=== PATIENT | female | born 1960 | race African-American/Black ===

== ENCOUNTER 2017-05-22 08:06 | Emergency (ER) | payer OTHER ==
[~2017-05-22] VITALS: Ht 167.6 cm; Wt 99.0 kg
[~2017-05-22 08:06] MED LIST: ACET-2178 PO
[2017-05-22] MEDS ORDERED: METOCLOPRAMIDE HCL 10MG TABLET PO ONE (08:30)
[2017-05-22] MEDS ORDERED: ACETAMINOPHEN 325MG TABLET PO ONE (08:30)
[2017-05-22 10:29] VITALS: BP 161/106
== END 2017-05-22 11:20 | disposition home or self-care (01) ==
LOC: ER 08:16
DX: S02.2XXA Fracture of nasal bones, initial encounter for closed fracture (principal); R04.0 Epistaxis; I10 Essential (primary) hypertension; Z88.0 Allergy status to penicillin; Z86.73 Personal history of transient ischemic attack (TIA), and cerebral infarction without residual deficits; X58.XXXA Exposure to other specified factors, initial encounter; Y93.89 Activity, other specified; Y92.89 Other specified places as the place of occurrence of the external cause; Y99.8 Other external cause status
CPT/HCPCS: 70486; 99284; Z7610; J8597

== ENCOUNTER 2019-08-16 11:41 | Inpatient (IN) | payer MEDICAID, OTHER ==
[~2019-08-16] VITALS: Ht 167.6 cm; Wt 79.8 kg
[~2019-08-16 11:41] MED LIST changes: -ACET-2178 PO; +TOPUD PO
[2019-08-16 14:05] LABS: BASOPHILS % 0.3 % (0.0-2.0); EOSINOPHILS % 0.6 % (0.0-5.0); HEMATOCRIT. 34.4 % (36.0-48.0); HEMOGLOBIN. 11.5 g/dL (12.0-16.0); MEAN CORPUSCULAR HEMOGLOBIN 31.1 pg (28.0-32.0); MEAN CORPUSCULAR VOLUME 92.8 fL (81.0-99.0); MEAN PLATELET VOLUME 6.8 fl (7.4-10.4); MONOCYTES % 11.7 % (2.0-8.0); NEUTROPHILS % 72.4 % (40.0-76.0); PLATELET 226 x1000/uL (130-400); RED BLOOD CELL COUNT 3.71 mill/uL (4.2-5.4); RED CELL DISTRIBUTION WIDTH 15.8 % (11.6-14.6)
[2019-08-16 14:12] LABS: CHLORIDE 105 mEq/L (98-107)
[2019-08-16 14:13] LABS: INR 1.1; PARTIAL THROMBOPLASTIN TIME 35.5 sec (23.4-31.0); PROTHROMBIN TIME 11.1 sec (9.6-11.0)
[2019-08-16 14:18] LABS: ETHANOL BLOOD < 10 mg/dL
[2019-08-16] MEDS ORDERED: HYDROMORPHONE HCL/PF 2MG/ML CPJ IV PRN (15:15)
[2019-08-16] MEDS ORDERED: ONDANSETRON HCL 4MG/2ML INJ IV PRN (15:15)
[2019-08-16] MEDS ORDERED: DOCUSATE SODIUM 100MG CAPSULE PO PRN (15:15)
[2019-08-16] MEDS ORDERED: GUAIFENESIN 200MG/10ML SUGAR FREE UDC PO PRN (15:15)
[2019-08-16] MEDS ORDERED: MAGNESIUM/ALUMINUM HYDROXIDE/SIMETHICONE 30ML UDC PO PRN (15:15)
[2019-08-16] MEDS ORDERED: DIPHENHYDRAMINE 50MG/ML VIAL IV PRN (15:15)
[2019-08-16] MEDS ORDERED: CLONIDINE 0.1MG TABLET PO PRN (15:15)
[2019-08-16] MEDS ORDERED: HYDROCODONE/ACETAMINOPHEN 5/325MG TABLET PO PRN (15:15)
[2019-08-16] MEDS ORDERED: ENOXAPARIN 40MG/0.4ML SYR SUBCUT SCH (15:15)
[2019-08-16] MEDS ORDERED: LORAZEPAM 2MG/ML CPJ IV PRN (15:15)
[2019-08-16] MEDS ORDERED: NA PHOS,M-B/NA PHOS,DI-BA ENEMA 118ML PR PRN (15:15)
[2019-08-16] MEDS ORDERED: IPRATROPIUM/ALBUTEROL 0.5-3(2.5)MG/3ML NEB NEB PRN (15:15)
[2019-08-16] MEDS: ACETAMINOPHEN 325MG TABLET PO PRN (16:29)
[2019-08-16 16:43] LABS: *AMPHETAMINES SCREEN URINE NEGATIVE (NEGATIVE); *BARBITURATES SCREEN URINE NEGATIVE (NEGATIVE); *BENZODIAZEPINES SCREEN URINE NEGATIVE (NEGATIVE); *COCAINE SCREEN URINE NEGATIVE (NEGATIVE); CANNABINOID URINE SCREEN NEGATIVE (NEGATIVE); METHADONE URINE SCREEN NEGATIVE (NEGATIVE); OPIATES URINE SCREEN NEGATIVE (NEGATIVE); PHENCYCLIDINE URINE SCREEN NEGATIVE (NEGATIVE)
[2019-08-16 16:44] LABS: CLARITY URINE CLEAR (CLEAR); COLOR URINE YELLOW (YELLOW); KETONES URINE NEGATIVE (NEGATIVE); LEUKOCYTE ESTERASE URINE NEGATIVE (NEGATIVE); NITRITE URINE NEGATIVE (NEGATIVE); OCCULT BLOOD URINE NEGATIVE (NEGATIVE); PROTEIN URINE 1+ (NEGATIVE); UROBILINOGEN URINE 0.2 E.U./dL (0.2-1.0)
[2019-08-16] MEDS: SODIUM CHLORIDE 0.45% 1,000 ML IV SCH (18:35)
[2019-08-16] MEDS ORDERED: ENOXAPARIN 30MG/0.3ML SYR SUBCUT SCH (18:45)
[2019-08-17 05:11] LABS: BASOPHILS % 0.3 % (0.0-2.0); EOSINOPHILS % 0.8 % (0.0-5.0); HEMATOCRIT. 34.1 % (36.0-48.0); HEMOGLOBIN. 11.4 g/dL (12.0-16.0); LYMPHOCYTES % 43.3 % (20.0-50.0); MEAN CORPUSCULAR HEMOGLOBIN 31.1 pg (28.0-32.0); MEAN PLATELET VOLUME 7.1 fl (7.4-10.4); MONOCYTES % 14.4 % (2.0-8.0); NEUTROPHILS % 41.2 % (40.0-76.0); PLATELET 208 x1000/uL (130-400); RED BLOOD CELL COUNT 3.66 mill/uL (4.2-5.4); RED CELL DISTRIBUTION WIDTH 15.8 % (11.6-14.6)
[2019-08-17 05:28] LABS: CHLORIDE 107 mEq/L (98-107)
[2019-08-17 05:41] LABS: T4 FREE 0.98 ng/dL (0.76-1.46)
[2019-08-17 08:35] LABS: CREATINE KINASE 92 IU/L (26-192)
[2019-08-17 08:40] VITALS: BP 148/91
[2019-08-17 09:00] VITALS: BP 136/80
[2019-08-17 10:00] VITALS: BP 148/91
[2019-08-17] MEDS: ACETAMINOPHEN 325MG TABLET PO PRN (10:00)
[2019-08-17] MEDS: ASPIRIN 81MG EC TABLET PO SCH (10:00)
[2019-08-17] MEDS: ENOXAPARIN 30MG/0.3ML SYR SUBCUT SCH (10:01)
[2019-08-17] MEDS ORDERED: POTA8CAP20 MT (13:07)
[2019-08-17] MEDS ORDERED: LOSA1TAB37 MT (13:07)
[2019-08-17] MEDS ORDERED: AMLO10TA80 PO (13:07)
[2019-08-17] MEDS ORDERED: FERR325T6 MT (13:07)
[2019-08-17] MEDS ORDERED: ATOR20TA65 MT (13:07)
[2019-08-17] MEDS ORDERED: LORA10TA7 MT (13:07)
[2019-08-17 13:18] LABS: T4 FREE 1.04 ng/dL (0.76-1.46)
[2019-08-17] MEDS: SODIUM CHLORIDE 0.45% 1,000 ML IV SCH (13:52)
[2019-08-17 16:00] VITALS: BP 117/75
[2019-08-17 17:24] LABS: CREATINE KINASE MB FRACTION < 1.0 ng/mL (0.5-3.6)
[2019-08-17 20:00] VITALS: BP 141/79
[2019-08-18] VITALS: BP 120/75
[2019-08-18 04:00] VITALS: BP_SYST 134; BP_SYST 177; BP_DIAS 102; BP_DIAS 74
[2019-08-18] MEDS: SODIUM CHLORIDE 0.45% 1,000 ML IV SCH (06:05)
[2019-08-18 08:00] VITALS: BP_SYST 136; BP_SYST 165; BP_SYST 183; BP_DIAS 119; BP_DIAS 130; BP_DIAS 81
[2019-08-18 09:11] LABS: BASOPHILS % 0.3 % (0.0-2.0); EOSINOPHILS % 0.5 % (0.0-5.0); HEMATOCRIT. 33.6 % (36.0-48.0); HEMOGLOBIN. 11.2 g/dL (12.0-16.0); LYMPHOCYTES % 31.4 % (20.0-50.0); MEAN CORPUSCULAR HEMOGLOBIN 30.8 pg (28.0-32.0); MEAN CORPUSCULAR VOLUME 92.6 fL (81.0-99.0); MEAN PLATELET VOLUME 7.2 fl (7.4-10.4); MONOCYTES % 8.8 % (2.0-8.0); PLATELET 181 x1000/uL (130-400); RED BLOOD CELL COUNT 3.63 mill/uL (4.2-5.4); RED CELL DISTRIBUTION WIDTH 15.8 % (11.6-14.6)
[2019-08-18 09:27] LABS: CHLORIDE 107 mEq/L (98-107)
[2019-08-18 09:29] VITALS: BP 136/81
[2019-08-18 09:37] LABS: CREATINE KINASE MB FRACTION < 1.0 ng/mL (0.5-3.6)
[2019-08-18] MEDS ORDERED: POTASSIUM CHLORIDE 20MEQ TABLET SR PO ONE (10:00)
[2019-08-18] MEDS: ASPIRIN 81MG EC TABLET PO SCH (10:16)
[2019-08-18] MEDS: ENOXAPARIN 30MG/0.3ML SYR SUBCUT SCH (10:17)
== END 2019-08-18 11:35 | disposition home or self-care (01) | DRG 48 ==
LOC: ER 11:51 → 5WST 13:58 → EDBEDREQ 14:05 → EDBEDREQTM 14:05 → ENRESERV 08-17 07:22
PROVIDERS: ADMIT Internal Medicine; ATTEND Internal Medicine
DX: G90.8 Other disorders of autonomic nervous system (principal); G93.41 Metabolic encephalopathy; N17.9 Acute kidney failure, unspecified; E78.5 Hyperlipidemia, unspecified; E86.0 Dehydration; I12.9 Hypertensive chronic kidney disease with stage 1 through stage 4 chronic kidney disease, or unspecified chronic kidney disease; N18.9 Chronic kidney disease, unspecified; Z86.73 Personal history of transient ischemic attack (TIA), and cerebral infarction without residual deficits; Z90.13 Acquired absence of bilateral breasts and nipples; Z90.710 Acquired absence of both cervix and uterus; Z92.21 Personal history of antineoplastic chemotherapy; Z85.3 Personal history of malignant neoplasm of breast; Z92.3 Personal history of irradiation; Z88.0 Allergy status to penicillin; Z79.899 Other long term (current) drug therapy
CPT/HCPCS: 36415; 71045; 76770; 80048; 80053; 80061; 80305; 80320; 81003; 82550; 82553; 83036; 83880; 84439; 84443; 84484; 85025; 85379; 93005; 93306; 93880; 93970; 96360; 96372; 99285; J1650; G0480

== ENCOUNTER 2023-10-09 09:04 | Emergency (ER) | payer OTHER ==
[~2023-10-09] VITALS: Ht 170.2 cm; Wt 90.0 kg
[~2023-10-09 09:04] MED LIST changes: +AMLO10TA80 PO; +ATOR20TA65 MT; +FERR325T6 MT; +LORA10TA7 MT; +LOSA1TAB37 MT; +POTA8CAP20 MT; -TOPUD PO
[2023-10-09 09:12] VITALS: O2SAT 96
[2023-10-09 09:37] LABS: CLARITY URINE CLEAR (CLEAR); COLOR URINE YELLOW (YELLOW); GLUCOSE URINE NEGATIVE (NEGATIVE); KETONES URINE NEGATIVE (NEGATIVE); LEUKOCYTE ESTERASE URINE 2+ (NEGATIVE); NITRITE URINE NEGATIVE (NEGATIVE); OCCULT BLOOD URINE NEGATIVE (NEGATIVE); PROTEIN URINE TRACE (NEGATIVE); SPECIFIC GRAVITY URINE 1.015 (1.005-1.030); UROBILINOGEN URINE 0.2 E.U./dL (0.2-1.0)
[2023-10-09 09:40] LABS: BASOPHILS % 0.4 % (0.0-2.0); EOSINOPHILS % 1.2 % (0.0-5.0); HEMOGLOBIN. 12.1 g/dL (12.0-16.0); LYMPHOCYTES % 26.6 % (20.0-50.0); MEAN CORPUSCULAR HEMOGLOBIN 29.7 pg (28.0-32.0); MEAN CORPUSCULAR HGB CONC 32.7 g/dL (31.0-37.0); MEAN CORPUSCULAR VOLUME 90.9 fL (81.0-99.0); MEAN PLATELET VOLUME 7.2 fl (7.4-10.4); MONOCYTES % 6.1 % (2.0-8.0); NEUTROPHILS % 65.7 % (40.0-76.0); PLATELET 285 x1000/uL (130-400); RED BLOOD CELL COUNT 4.07 mill/uL (4.2-5.4); WHITE BLOOD COUNT 9.3 x1000/uL (4.5-11.0)
[2023-10-09 09:54] LABS: ALANINE AMINOTRANSFERASE < 7 IU/L (10-49); ALBUMIN 4.5 g/dL (3.2-4.8); ASPARTATE AMINOTRANSFERASE 22 IU/L (<34); BILIRUBIN TOTAL 0.5 mg/dL (0.1-1.0); CALCIUM 9.7 mg/dL (8.7-10.4); CARBON DIOXIDE 26 mEq/L (21-32); CHLORIDE 108 mEq/L (98-107); CREATININE 1.4 mg/dL (0.6-1.0); GLUCOSE 84 mg/dL (70-105); POTASSIUM 3.5 mEq/L (3.5-5.1); PROTEIN TOTAL 8.4 g/dL (6.0-8.3); SODIUM 140 mEq/L (136-145); UREA NITROGEN BLOOD 18 mg/dL (9-23)
[2023-10-09 10:01] LABS: SQUAMOUS EPITHELIAL CELL URINE FEW /lpf (RARE/1+)
[2023-10-09 10:02] LABS: BACTERIA URINE TRACE
[2023-10-09 10:03] LABS: RBC URINE 0-2 /hpf (0-2)
[2023-10-09] MEDS: HYDRALAZINE 20MG/ML VIAL IV ONE (11:15)
[2023-10-09 11:27] LABS: TROPONIN I HIGH SENSITIVITY 14 ng/L (3.0-34)
[2023-10-09] MEDS: ACETAMINOPHEN 325MG TABLET PO ONE (11:52)
[2023-10-09] MEDS ORDERED: CLONIDINE 0.2MG TABLET PO ONE (12:45)
[2023-10-09 12:50] VITALS: TEMP 98.2
[2023-10-09] MEDS: ONDANSETRON HCL 4MG/2ML INJ IV ONE (13:02)
[2023-10-09 13:35] LABS: TROPONIN I HIGH SENSITIVITY 14 ng/L (3.0-34)
[2023-10-09] MEDS: CLONIDINE 0.1MG TABLET PO NR (13:42)
[2023-10-09] MEDS ORDERED: CLON-493 MT (15:52)
[2023-10-09 16:00] VITALS: BP 137/94; PULSE 62; RESP 20
== END 2023-10-09 16:26 | disposition home or self-care (01) ==
LOC: ER 09:04 → CANBEDREQ 16:00 → ER 16:26
DX: I16.0 Hypertensive urgency (principal); I10 Essential (primary) hypertension; R51.9 Headache, unspecified; Z85.9 Personal history of malignant neoplasm, unspecified; Z86.73 Personal history of transient ischemic attack (TIA), and cerebral infarction without residual deficits; Z90.710 Acquired absence of both cervix and uterus; Z79.899 Other long term (current) drug therapy; Z88.0 Allergy status to penicillin
CPT/HCPCS: 80053; 81003; 83880; 85025; 84484; 36415; 71045; 70450; 93005; 96374; 96375; 99285; J0360; J2405; Z7610 ×2

== ENCOUNTER 2024-05-08 09:14 | Emergency (ER) | payer MEDICAID, OTHER ==
[~2024-05-08] VITALS: Ht 167.6 cm; Wt 92.5 kg
[~2024-05-08 09:14] MED LIST changes: +CLON-493 MT
[2024-05-08 09:21] VITALS: O2SAT 100
[2024-05-08 10:20] LABS: BASOPHILS % 0.5 % (0.0-2.0); EOSINOPHILS % 1.2 % (0.0-5.0); HEMATOCRIT. 38.4 % (36.0-48.0); HEMOGLOBIN. 12.3 g/dL (12.0-16.0); MEAN CORPUSCULAR HEMOGLOBIN 29.8 pg (28.0-32.0); MEAN CORPUSCULAR HGB CONC 32.1 g/dL (31.0-37.0); MEAN CORPUSCULAR VOLUME 93.1 fL (81.0-99.0); MEAN PLATELET VOLUME 7.4 fl (7.4-10.4); MONOCYTES % 6.1 % (2.0-8.0); NEUTROPHILS % 68.2 % (40.0-76.0); PLATELET 291 x1000/uL (130-400); RED BLOOD CELL COUNT 4.12 mill/uL (4.2-5.4); RED CELL DISTRIBUTION WIDTH 14.8 % (11.6-14.6)
[2024-05-08 10:30] LABS: CHLORIDE 105 mEq/L (98-107); POTASSIUM 3.9 mEq/L (3.5-5.1); SODIUM 140 mEq/L (136-145)
[2024-05-08 10:31] LABS: CARBON DIOXIDE 28 mEq/L (21-32)
[2024-05-08 10:32] LABS: CALCIUM 10.2 mg/dL (8.7-10.4)
[2024-05-08 10:36] LABS: CREATININE 1.7 mg/dL (0.6-1.0); GLUCOSE 93 mg/dL (70-105); UREA NITROGEN BLOOD 17 mg/dL (9-23)
[2024-05-08 10:37] LABS: TROPONIN I HIGH SENSITIVITY 9 ng/L (3.0-34)
[2024-05-08 10:38] LABS: ALANINE AMINOTRANSFERASE 9 IU/L (10-49); ALBUMIN 4.3 g/dL (3.2-4.8); PROTEIN TOTAL 7.9 g/dL (6.0-8.3)
[2024-05-08 10:39] LABS: BILIRUBIN TOTAL 0.4 mg/dL (0.1-1.0)
[2024-05-08] MEDS: ACETAMINOPHEN 325MG TABLET PO ONE (10:55)
[2024-05-08] MEDS: KETOROLAC 30MG/ML VIAL IM ONE (10:57)
[2024-05-08 11:12] LABS: ASPARTATE AMINOTRANSFERASE 19 IU/L (<34)
[2024-05-08] MEDS: METOPROLOL TARTRATE 25MG TABLET PO ONE (11:59)
[2024-05-08 12:35] VITALS: BP 218/130; PULSE 60; RESP 16; TEMP 36.78072; O2SAT 98
[2024-05-08 13:07] LABS: TROPONIN I HIGH SENSITIVITY 12 ng/L (3.0-34)
[2024-05-09 04:45] LABS: CLARITY URINE CLEAR (CLEAR); COLOR URINE YELLOW (YELLOW); GLUCOSE URINE NEGATIVE (NEGATIVE); KETONES URINE NEGATIVE (NEGATIVE); LEUKOCYTE ESTERASE URINE TRACE (NEGATIVE); NITRITE URINE NEGATIVE (NEGATIVE); OCCULT BLOOD URINE NEGATIVE (NEGATIVE); PH URINE 6.5 (4.5-8.0); PROTEIN URINE 1+ (NEGATIVE); SPECIFIC GRAVITY URINE 1.013 (1.005-1.030); UROBILINOGEN URINE 0.2 E.U./dL (0.2-1.0)
[2024-05-09 06:32] LABS: RBC URINE 0-2 /hpf (0-2); WBC URINE 0-2 /hpf (0-2)
[2024-05-09 06:34] LABS: BACTERIA URINE 1+; SQUAMOUS EPITHELIAL CELL URINE NONE SEEN /lpf (RARE/1+)
== END 2024-05-08 12:40 | disposition home or self-care (01) ==
LOC: ER 09:14
DX: I16.0 Hypertensive urgency (principal); R51.9 Headache, unspecified; Z88.0 Allergy status to penicillin; Z79.899 Other long term (current) drug therapy
CPT/HCPCS: 99285; 70450; 71045; 80053; 81003; 85025; 84484; 36415; 93005; 96372; J1885